=== PATIENT | male | born 1945 | race Caucasian/White ===

== ENCOUNTER 2016-10-07 12:42 | Emergency (ER) | payer MEDICARE, BC ==
--- NOTE | 2016-10-07 16:50 | RAD ---
INDICATION: History of thrombus in the RIGHT great saphenous vein. Pain and redness at medial calf. Anticoagulated. COMPARISON: November 02, 2015 TECHNIQUE: Vásquez scale, color Doppler, and spectral analysis of the deep veins of the RIGHT lower extremity. Vessel compression, phasicity, and augmentation assessed. REPORT: Nonocclusive chronic marginal echogenic thrombus is visualized in the great saphenous vein extending to within 0.8 cm of the saphenous femoral junction. The RIGHT common femoral, profunda femoral, femoral, popliteal, peroneal, and posterior tibial veins are patent. There are thrombosed thick-walled superficial veins at the proximal RIGHT calf. Surrounding soft tissue edema. Patency of the LEFT common femoral vein documented. IMPRESSION: 1. No evidence for RIGHT lower extremity deep venous thrombosis. 2. Nonocclusive chronic marginal echogenic thrombus is visualized in the great saphenous vein extending to within 0.8 cm of the saphenous femoral junction. 3. Superficial thrombophlebitis at the proximal RIGHT calf corresponding with the region of clinical concern.
--- NOTE | 2016-10-07 17:08 | ED ---
Lower Extremity - HPI Summary HPI Summary: Patient presents with medial right lower extremity redness and pain. He has a history of DVT and is on eloquis for A-fib, so he knows he is protected but didn 't know what to do. He denies trauma to the region. He denies SOB, CP, calf swelling or GARCIA. - History of Current Complaint Chief Complaint: EDExtremityLower Stated Complaint: POSSIBLE BLOOD CLOT IN RIGHT LEG Time Seen by Provider: 10/07/16 14:09 Hx Obtained From: Patient Mechanism Of Injury: Unknown Onset of Pain: Days Onset/Duration: Still Present Severity Initially: Mild Severity Currently: Moderate Pain Intensity: 5 Timing: Constant Location: Is Discrete @ - right proximal medial calf Character Of Pain: Aching Associated Signs And Symptoms: Positive: Redness Aggravating Factor(s): Standing Alleviating Factor(s): Rest Able to Bear Weight: Yes - Allergies/Home Medications Allergies/Adverse Reactions: Allergies Allergy/AdvReac Type Severity Reaction Status Date / Time Chlorhexidine Allergy skin Verified 08/19/15 09:30 breakdown PMH/Surg Hx/FS Hx/Imm Hx Endocrine/Hematology History: Reports: Hx Anticoagulant Therapy - COUMADIN, ASPIRIN, Hx Anemia Denies: Hx Blood Disorders, Hx Blood Transfusions, Hx Bone Marrow Disease, Hx Diabetes, Hx Systemic Lupus Erythematosus, Hx Sickle Cell Disease, Hx Thyroid Disease, Hx Unexplained Bleeding Cardiovascular History: Reports: Hx Auto Implanted Cardiovert Defib, Hx Cardiomegaly, Hx Congestive Heart Failure, Hx Hypercholesterolemia, Hx Hypotension, Hx Hypertension, Hx Pacemaker/ICD - FEBRUARY 2014, Other Cardiovascular Problems/Disorders Respiratory History: Reports: Hx Asthma - EXERCISE INDUCED, Hx Chronic Obstructive Pulmonary Disease (COPD), Hx Pneumonia, Hx Seasonal Allergies Denies: Other Respiratory Problems/Disorders Musculoskeletal History: Reports: Hx Arthritis, Hx Orthopedic Injury - left knee injury, Hx Tendonitis Denies: Hx Back Problems, Hx Bursitis, Hx Fibromyalgia, Hx Gout, Hx Osteoporosis, Hx Scoliosis Sensory History: Reports: Hx Cataracts - removed, Hx Contacts or Glasses Denies: Hx Eye Injury, Hx Eye Prosthesis, Hx Glaucoma, Hx Macular Degeneration, Hx Vision Problem, Hx Deafness, Hx Hearing Aid, Hx Hearing Problem , Other Sensory Impairments Opthamlomology History: Reports: Hx Cataracts - removed, Hx Contacts or Glasses Denies: Hx Eye Injury, Hx Eye Prosthesis, Hx Glaucoma, Hx Macular Degeneration, Hx Vision Problem, Other Sensory Impairments Psychiatric History: Reports: Hx Anxiety, Hx Depression - Cancer History Cancer Type, Location and Year: lymphoma, REMISSION SINCE 1986 Hx Chemotherapy: Yes Hx Radiation Therapy: No - Surgical History Surgery Procedure, Year, and Place: S/P HEART TRANSPLANT LONG STEROID USE Hx Anesthesia Reactions: No - Immunization History Date of Tetanus Vaccine: Unk Date of Influenza Vaccine: Fall 2011 Infectious Disease History: No Infectious Disease History: Reports: Hx Shingles Denies: Hx Clostridium Difficile, Hx Hepatitis, Hx Human Immunodeficiency Virus (HIV), Hx Tuberculosis, Traveled Outside the [place] in Last 30 Days - Family History Known Family History: Positive: Hypertension - Social History Occupation: Retired Lives: With Family Alcohol Use: 2-3 days/week Substance Use Type: Reports: None Smoking Status (MU): Former Smoker Have You Smoked in the Last Year: No Review of Systems Negative: Chest Pain Negative: Shortness Of Breath Negative: Edema Positive: Other - mild erythema and pain Negative: Paresthesia, Numbness All Other Systems Reviewed And Are Negative: Yes Physical Exam Triage Information Reviewed: Yes Vital Signs On Initial Exam: Initial Vitals Temp Pulse Resp BP Pulse Ox 97.9 F 73 20 119/82 100 10/07/16 12:48 10/07/16 12:48 10/07/16 12:48 10/07/16 12:48 10/07/16 12:48 Vital Signs Reviewed: Yes Appearance: Positive: Well-Appearing, No Pain Distress, Well-Nourished Skin: Positive: Warm, Skin Color Reflects Adequate Perfusion, Dry, Tender, Soft , Erythema @ - 1cm area of ertythema along right medial proximal calf corresponding to a vein without edema Head/Face: Positive: Normal Head/Face Inspection Eyes: Positive: EOMI, THOM, Conjunctiva Clear ENT: Positive: Hearing grossly normal Respiratory/Lung Sounds: Positive: Clear to Auscultation, Breath Sounds Present Cardiovascular: Positive: RRR Musculoskeletal: Positive: Strength/ROM Intact, Pain @ - TTP right medial proximal calf corrsponding to erythema. Negative: Edema Left, Edema Right Neurological: Positive: Sensory/Motor Intact, Alert, Oriented to Person Place, Time, NV Bundle Intact Distally, Normal Gait Psychiatric: Positive: Affect/Mood Appropriate AVPU Assessment: Alert - [place] Coma Scale Coma Scale Total: 15 Diagnostics - Vital Signs Vital Signs Temp Pulse Resp BP Pulse Ox 10/07/16 12:50 97.9 F 70 20 119/82 100 10/07/16 12:48 97.9 F 73 20 119/82 100 - Laboratory Lab Statement: Any lab studies that have been ordered have been reviewed, and results considered in the medical decision making process. - Ultrasound No standard instances Ultrasound Interpretation: Positive (See Comments) Ultrasound Interpretation Completed By: Radiologist - superficial venous thrombosis Lower Extremity Course/Dx - Diagnoses Differential Diagnosis/HQI/PQRI: Positive: Arthritis, Cellulitis, Contusion, Dislocation, Fracture (Closed), Infection, Phlebitis, Sprain, Strain Provider Diagnoses: Superficial thrombophlebitis of right leg Discharge - Discharge Plan Condition: Stable Disposition: HOME Patient Education Materials: Superficial Thrombophlebitis (ED) Referrals: Tati Das MD [Primary Care Provider] - Additional Instructions: You do not have a deep vein thrombosis (DVT) Please continue to use your normal medications. Apply warm compresses to the area of concern. Use Tylenol for pain , since ibuprofen can also thin your blood. Please follow-up with your primary care provider in 2-3 days for re-evaluation. Return to the emergency department if symptoms worsen.
[2016-10-07 17:24] VITALS: BP 106/90
== END 2016-10-07 17:23 | disposition home or self-care (01) ==
LOC: ED 12:42
DX: I80.01 Phlebitis and thrombophlebitis of superficial vessels of right lower extremity (principal)
CPT/HCPCS: 99281

== ENCOUNTER → 2016-10-26 07:52 | Emergency (ER) | payer MEDICARE, BC ==
[~2016-10-26 07:52] MED LIST: Acetaminophen TAB* 325 MG PO ONE; NS 0.9% 1000 ML* 2,000 ML IV ONE; Ondansetron INJ* 2 MG/ML VIAL IV ONE; Potassium Chlor TAB* 20 MEQ TAB.ER PO ONE; Vancomycin(*) 1,000 MG in NS 0.9% 250 ML* 250 ML IVPB ONE; oxyCODONE/Acetamin 5/325 MG* TAB PO ONE
--- NOTE | 2016-10-26 08:54 | RAD ---
INDICATION: Fever COMPARISON: Similar chest x-ray dated February 20, 2015 TECHNIQUE: Single AP portable view of the chest was obtained. FINDINGS: Image quality is compromised due to the relative inferiority of a portable chest x-ray. Stable iatrogenic findings include a right chest cardiac pacemaker with one lead overlying the heart and sternotomy wires. The heart and mediastinum exhibit normal size and contour. The lungs are grossly clear. There is no evidence of a large pleural effusion. Visualized bones are normal for the patient's age. IMPRESSION: No radiographic evidence for acute cardiopulmonary abnormality on this portable chest x-ray.
[2016-10-26 09:32] LABS: Hematocrit 36 % (42-52); Hemoglobin 11.6 g/dl (14.0-18.0); Mean Corpuscular HGB Conc 33 g/dl (31-36); Mean Corpuscular Hemoglobin 27 pg (27-31); Mean Corpuscular Volume 83 fL (80-94); Mean Platelet Volume 8 um3 (7.4-10.4); Red Blood Count 4.29 10^6/ul (4.0-5.4); Red Cell Distribution Width 17 % (10.5-15); White Blood Count 5.6 10^3/ul (3.5-10.8)
[2016-10-26 09:38] LABS: Add Diff/Slide Review? Manual Diff Added; Comments Flag Yes
[2016-10-26 09:41] LABS: Albumin 3.7 g/dL (3.2-5.2); BUN/Creatinine Ratio 20.2 (8-20); C Reactive Protein 159.97 mg/L (< 5.00); Calcium 8.5 mg/dL (8.6-10.3); EGFR African American 86.3 (>60); EGFR Non-African American 67.1 (>60); Globulin 2.8 g/dL (2-4); Potassium 3.4 mmol/L (3.5-5.0); Total Bilirubin 0.8 mg/dL (0.2-1.0); Total Protein 6.5 g/dL (6.4-8.9)
[2016-10-26 09:43] LABS: Troponin I 0.03 ng/mL (<0.04)
[2016-10-26 10:32] LABS: Add Path Review? YES; Eosinophils % 1 % (0-6); Hypochromasia 1+; Microcytosis 1+; Neutrophil % 78 % (38-83)
[2016-10-26 11:00] LABS: Urine Bacteria Absent (Absent); Urine Bilirubin Negative (Negative); Urine Glucose Negative (Negative); Urine Nitrite Negative (Negative)
[2016-10-26 11:35] LABS: Erythrocyte Sed Rate 32 mm/Hr (0-40)
[2016-10-26 12:05] VITALS: BP 110/68
--- NOTE | 2016-10-26 12:13 | ED ---
Hunter Esquivel Aidan, scribed for Car Wisdom MD on 10/26/16 at 0905 . Complex/Multi-Sys Presentation - HPI Summary HPI Summary: 71 y/o male presents to the ED with a complaint of acute, constant, moderate, diffuse abdominal pain and diffuse joint pain. Other associated symptoms include a GARCIA, fever of 103 last night, chills, mild cough, severe diarrhea this morning, and a spreading rash on his back that was first noticed yesterday. Besides his fever and rash, symptoms began 4 days ago. Yesterday, he was diagnosed with UTI and given abx. Pt denies any SOB or CP. He believes he may have a kidney infection. Hx of heart transplant in August of 2013. - History Of Current Complaint Chief Complaint: EDGeneral Time Seen by Provider: 10/26/16 08:12 Hx Obtained From: Patient, Family/Tensile Tester - Onset/Duration: Gradual Onset, Lasting Days - 4, Still Present Timing: Constant Severity Currently: Moderate Severity Initially: Moderate Location: Pain At: - diffuse abdomen, diffuse joint pain, GARCIA Character: Sharp - abd pain, GARCIA was undescribed Aggravating Factor(s): unknown Alleviating Factor(s): unknown Associated Signs And Symptoms: Positive: Headache, Cough, Diarrhea, Abdominal Pain, Fever - 103 last night, Other - diffuse joint pain, chills, rash - Allergies/Home Medications Allergies/Adverse Reactions: Allergies Allergy/AdvReac Type Severity Reaction Status Date / Time Chlorhexidine Allergy skin Verified 08/19/15 09:30 breakdown PMH/Surg Hx/FS Hx/Imm Hx Endocrine/Hematology History: Reports: Hx Anticoagulant Therapy - COUMADIN, ASPIRIN, Hx Anemia Denies: Hx Blood Disorders, Hx Blood Transfusions, Hx Bone Marrow Disease, Hx Diabetes, Hx Systemic Lupus Erythematosus, Hx Sickle Cell Disease, Hx Thyroid Disease, Hx Unexplained Bleeding Cardiovascular History: Reports: Hx Auto Implanted Cardiovert Defib, Hx Cardiomegaly, Hx Congestive Heart Failure, Hx Hypercholesterolemia, Hx Hypotension, Hx Hypertension, Hx Pacemaker/ICD - FEBRUARY 2014, Other Cardiovascular Problems/Disorders Respiratory History: Reports: Hx Asthma - EXERCISE INDUCED, Hx Chronic Obstructive Pulmonary Disease (COPD), Hx Pneumonia, Hx Seasonal Allergies Denies: Other Respiratory Problems/Disorders Musculoskeletal History: Reports: Hx Arthritis, Hx Orthopedic Injury - left knee injury, Hx Tendonitis Denies: Hx Back Problems, Hx Bursitis, Hx Fibromyalgia, Hx Gout, Hx Osteoporosis, Hx Scoliosis Sensory History: Reports: Hx Cataracts - removed, Hx Contacts or Glasses Denies: Hx Eye Injury, Hx Eye Prosthesis, Hx Glaucoma, Hx Macular Degeneration, Hx Vision Problem, Hx Deafness, Hx Hearing Aid, Hx Hearing Problem , Other Sensory Impairments Opthamlomology History: Reports: Hx Cataracts - removed, Hx Contacts or Glasses Denies: Hx Eye Injury, Hx Eye Prosthesis, Hx Glaucoma, Hx Macular Degeneration, Hx Vision Problem, Other Sensory Impairments Psychiatric History: Reports: Hx Anxiety, Hx Depression - Cancer History Cancer Type, Location and Year: lymphoma, REMISSION SINCE 1986 Hx Chemotherapy: Yes Hx Radiation Therapy: No - Surgical History Surgery Procedure, Year, and Place: S/P HEART TRANSPLANT LONG STEROID USE Hx Anesthesia Reactions: No - Immunization History Date of Tetanus Vaccine: Unk Date of Influenza Vaccine: Fall 2011 Infectious Disease History: No Infectious Disease History: Reports: Hx Shingles Denies: Hx Clostridium Difficile, Hx Hepatitis, Hx Human Immunodeficiency Virus (HIV), Hx Tuberculosis, Traveled Outside the in Last 30 Days - Family History Known Family History: Positive: Hypertension - Social History Occupation: Retired Lives: With Family Alcohol Use: None Substance Use Type: Reports: None Smoking Status (MU): Former Smoker Have You Smoked in the Last Year: No Review of Systems Positive: Fever, Chills. Negative: Fatigue, Skin Diaphoresis Eyes: Negative ENT: Negative Cardiovascular: Negative Positive: Cough. Negative: Shortness Of Breath Positive: Abdominal Pain, Diarrhea. Negative: Vomiting, Nausea Genitourinary: Negative Positive: Arthralgia - diffuse joint pain. Negative: Myalgia Positive: Rash. Negative: Bruising Positive: Headache. Negative: Weakness, Paresthesia, Numbness, Syncope, Slurred Speech Psychological: Normal All Other Systems Reviewed And Are Negative: Yes Physical Exam - Summary Physical Exam Summary: VITAL SIGNS: Reviewed. GENERAL: Patient is a well-developed and nourished MALE who is lying comfortable in the stretcher. Patient is not in any acute respiratory distress. HEAD AND FACE: No signs of trauma. No ecchymosis, hematomas or skull depressions. No sinus tenderness. EYES: PERRLA, EOMI x 2, No injected conjunctiva, no nystagmus. EARS: Hearing grossly intact. Ear canals and tympanic membranes are within normal limits. MOUTH: Oropharynx within normal limits. NECK: Supple, trachea is midline, no adenopathy, no JVD, no carotid bruit, no c- spine tenderness, neck with full ROM. CHEST: Symmetric, no tenderness at palpation LUNGS: Clear to auscultation bilaterally. No wheezing or crackles. CVS: Regular rate and rhythm, S1 and S2 present, no murmurs or gallops appreciated. ABDOMEN: Soft, non-tender. No signs of distention. No rebound no guarding, and no masses palpated. Bowel sounds are normal. EXTREMITIES: FROM in all major joints, no edema, no cyanosis or clubbing. NEURO: Alert and oriented x 3. No acute neurological deficits. Speech is normal and follows commands. SKIN: Dry and warm, however, there is a rash on the patient's back, 6cm b 4cm with irregular borders. Triage Information Reviewed: Yes Vital Signs On Initial Exam: Initial Vitals Temp Pulse Resp BP Pulse Ox 99.6 F 69 18 122/80 100 10/26/16 07:54 10/26/16 07:54 10/26/16 07:54 10/26/16 07:54 10/26/16 07:54 Vital Signs Reviewed: Yes - [place] Coma Scale Coma Scale Total: 15 Diagnostics - Vital Signs Vital Signs Temp Pulse Resp BP Pulse Ox 10/26/16 07:59 99.5 F 70 17 122/80 100 10/26/16 07:54 99.6 F 69 18 122/80 100 - Laboratory Lab Results: Lab Results 10/26/16 10/26/16 10/26/16 Range/Units 09:05 09:05 09:05 WBC 5.6 (3.5-10.8) 10^3/ul RBC 4.29 (4.0-5.4) 10^6/ul Hgb 11.6 L (14.0-18.0) g/dl Hct 36 L (42-52) % MCV 83 (80-94) fL MCH 27 (27-31) pg MCHC 33 (31-36) g/dl RDW 17 H (10.5-15) % Plt Count 149 L (150-450) 10^3/ul MPV 8 (7.4-10.4) um3 Absolute Neuts (auto) 4.3 (1.5-7.7) 10^3/ul Absolute Lymphs (auto) 0.6 L (1.0-4.8) 10^3/ul Absolute Monos (auto) 0.7 (0-0.8) 10^3/ul Absolute Eos (auto) 0 (0-0.6) 10^3/ul Absolute Basos (auto) 0 (0-0.2) 10^3/ul Absolute Nucleated RBC 0 10^3/ul Neutrophils % 78 (38-83) % Lymphocytes % 10 L (25-47) % Monocytes % 11 (0-13) % Eosinophils % 1 (0-6) % Normal RBC Morphology Not Reportable Hypochromasia 1+ Microcytosis 1+ ESR Pending Hem Pathologist Commnt Pending INR (Anticoag Therapy) 1.57 H (0.89-1.11) APTT 41.8 H (26.0-36.3) seconds Fibrinogen 477 H (110.8-404.3) mg/dL Sodium 131 L (133-145) mmol/L Potassium 3.4 L (3.5-5.0) mmol/L Chloride 96 L (101-111) mmol/L Carbon Dioxide 25 (22-32) mmol/L Anion Gap 10 (2-11) mmol/L BUN 22 (6-24) mg/dL Creatinine 1.09 (0.67-1.17) mg/dL Est GFR ( Amer) 86.3 (>60) Est GFR (Non-Af Amer) 67.1 (>60) BUN/Creatinine Ratio 20.2 H (8-20) Glucose 121 H (70-100) mg/dL Lactic Acid (0.5-2.0) mmol/L Calcium 8.5 L (8.6-10.3) mg/dL Total Bilirubin 0.80 (0.2-1.0) mg/dL AST 52 H (13-39) U/L ALT 30 (7-52) U/L Alkaline Phosphatase 100 (34-104) U/L Total Creatine Kinase 123 (10-223) U/L Troponin I 0.03 (<0.04) ng/mL C-Reactive Protein 159.97 H (< 5.00) mg/L B-Natriuretic Peptide ( - 100) pg/mL Total Protein 6.5 (6.4-8.9) g/dL Albumin 3.7 (3.2-5.2) g/dL Globulin 2.8 (2-4) g/dL Albumin/Globulin Ratio 1.3 (1-3) Urine Color Urine Appearance Urine pH (5-9) Ur Specific [place] (1.010-1.030) Urine Protein (Negative) Urine Ketones (Negative) Urine Blood (Negative) Urine Nitrate (Negative) Urine Bilirubin (Negative) Urine Urobilinogen (Negative) Ur Leukocyte Esterase (Negative) Urine WBC (Auto) (Absent) Urine RBC (Auto) (Absent) Ur Squamous Epith Cells (Absent) Urine Bacteria (Absent) Urine Glucose (Negative) Urine Ascorbic Acid (Negative) Influenza A (Rapid) (Negative) Influenza B (Rapid) (Negative) 10/26/16 10/26/16 10/26/16 Range/Units 09:05 09:05 09:30 WBC (3.5-10.8) 10^3/ul RBC (4.0-5.4) 10^6/ul Hgb (14.0-18.0) g/dl Hct (42-52) % MCV (80-94) fL MCH (27-31) pg MCHC (31-36) g/dl RDW (10.5-15) % Plt Count (150-450) 10^3/ul MPV (7.4-10.4) um3 Absolute Neuts (auto) (1.5-7.7) 10^3/ul Absolute Lymphs (auto) (1.0-4.8) 10^3/ul Absolute Monos (auto) (0-0.8) 10^3/ul Absolute Eos (auto) (0-0.6) 10^3/ul Absolute Basos (auto) (0-0.2) 10^3/ul Absolute Nucleated RBC 10^3/ul Neutrophils % (38-83) % Lymphocytes % (25-47) % Monocytes % (0-13) % Eosinophils % (0-6) % Normal RBC Morphology Hypochromasia Microcytosis ESR Hem Pathologist Commnt INR (Anticoag Therapy) (0.89-1.11) APTT (26.0-36.3) seconds Fibrinogen (110.8-404.3) mg/dL Sodium (133-145) mmol/L Potassium (3.5-5.0) mmol/L Chloride (101-111) mmol/L Carbon Dioxide (22-32) mmol/L Anion Gap (2-11) mmol/L BUN (6-24) mg/dL Creatinine (0.67-1.17) mg/dL Est GFR ( Amer) (>60) Est GFR (Non-Af Amer) (>60) BUN/Creatinine Ratio (8-20) Glucose (70-100) mg/dL Lactic Acid 1.0 (0.5-2.0) mmol/L Calcium (8.6-10.3) mg/dL Total Bilirubin (0.2-1.0) mg/dL AST (13-39) U/L ALT (7-52) U/L Alkaline Phosphatase (34-104) U/L Total Creatine Kinase (10-223) U/L Troponin I (<0.04) ng/mL C-Reactive Protein (< 5.00) mg/L B-Natriuretic Peptide 139 H ( - 100) pg/mL Total Protein (6.4-8.9) g/dL Albumin (3.2-5.2) g/dL Globulin (2-4) g/dL Albumin/Globulin Ratio (1-3) Urine Color Yellow Urine Appearance Clear Urine pH 5.0 (5-9) Ur Specific [place] 1.020 (1.010-1.030) Urine Protein 1+(30 mg/dl) H (Negative) Urine Ketones 1+ H (Negative) Urine Blood 2+ H (Negative) Urine Nitrate Negative (Negative) Urine Bilirubin Negative (Negative) Urine Urobilinogen Negative (Negative) Ur Leukocyte Esterase Trace H (Negative) Urine WBC (Auto) Trace(0-5/hpf) (Absent) Urine RBC (Auto) 3+(>10/hpf) H (Absent) Ur Squamous Epith Cells Present H (Absent) Urine Bacteria Absent (Absent) Urine Glucose Negative (Negative) Urine Ascorbic Acid * H (Negative) Influenza A (Rapid) (Negative) Influenza B (Rapid) (Negative) 10/26/16 Range/Units 09:30 WBC (3.5-10.8) 10^3/ul RBC (4.0-5.4) 10^6/ul Hgb (14.0-18.0) g/dl Hct (42-52) % MCV (80-94) fL MCH (27-31) pg MCHC (31-36) g/dl RDW (10.5-15) % Plt Count (150-450) 10^3/ul MPV (7.4-10.4) um3 Absolute Neuts (auto) (1.5-7.7) 10^3/ul Absolute Lymphs (auto) (1.0-4.8) 10^3/ul Absolute Monos (auto) (0-0.8) 10^3/ul Absolute Eos (auto) (0-0.6) 10^3/ul Absolute Basos (auto) (0-0.2) 10^3/ul Absolute Nucleated RBC 10^3/ul Neutrophils % (38-83) % Lymphocytes % (25-47) % Monocytes % (0-13) % Eosinophils % (0-6) % Normal RBC Morphology Hypochromasia Microcytosis ESR Hem Pathologist Commnt INR (Anticoag Therapy) (0.89-1.11) APTT (26.0-36.3) seconds Fibrinogen (110.8-404.3) mg/dL Sodium (133-145) mmol/L Potassium (3.5-5.0) mmol/L Chloride (101-111) mmol/L Carbon Dioxide (22-32) mmol/L Anion Gap (2-11) mmol/L BUN (6-24) mg/dL Creatinine (0.67-1.17) mg/dL Est GFR ( Amer) (>60) Est GFR (Non-Af Amer) (>60) BUN/Creatinine Ratio (8-20) Glucose (70-100) mg/dL Lactic Acid (0.5-2.0) mmol/L Calcium (8.6-10.3) mg/dL Total Bilirubin (0.2-1.0) mg/dL AST (13-39) U/L ALT (7-52) U/L Alkaline Phosphatase (34-104) U/L Total Creatine Kinase (10-223) U/L Troponin I (<0.04) ng/mL C-Reactive Protein (< 5.00) mg/L B-Natriuretic Peptide ( - 100) pg/mL Total Protein (6.4-8.9) g/dL Albumin (3.2-5.2) g/dL Globulin (2-4) g/dL Albumin/Globulin Ratio (1-3) Urine Color Urine Appearance Urine pH (5-9) Ur Specific [place] (1.010-1.030) Urine Protein (Negative) Urine Ketones (Negative) Urine Blood (Negative) Urine Nitrate (Negative) Urine Bilirubin (Negative) Urine Urobilinogen (Negative) Ur Leukocyte Esterase (Negative) Urine WBC (Auto) (Absent) Urine RBC (Auto) (Absent) Ur Squamous Epith Cells (Absent) Urine Bacteria (Absent) Urine Glucose (Negative) Urine Ascorbic Acid (Negative) Influenza A (Rapid) Negative (Negative) Influenza B (Rapid) Negative (Negative) Result Diagrams: 10/26/16 09:05 10/26/16 09:05 Lab Statement: Any lab studies that have been ordered have been reviewed, and results considered in the medical decision making process. Re-Evaluation - Re-Evaluation First Eval Re-Evaluation Time: 09:40 - On re-evaluation, the patient was not feeling better nor was he feeling worse. Change: Unchanged Complex Multi-Symp Course/Dx Assessment/Plan: 71 y/o male presents to the ED with a complaint of acute, constant, moderate, diffuse abdominal pain and diffuse joint pain. Other associated symptoms include a GARCIA, fever of 103 last night, chills, mild cough, severe diarrhea this morning, and a spreading rash on his back that was first noticed yesterday. Besides his fever and rash, symptoms began 4 days ago. Yesterday, he was diagnosed with UTI and given abx. Pt denies any SOB or CP. He believes he may have a kidney infection. Hx of heart transplant in August of 2013. In the ED course an 2 IV access was obtained. Patient was placed in a property assessment monitor. Patient was started with IV fluids. Since patient is immunosuppressed and he has a fever blood work and blood cultures, UA and Urine cultures obtained. He was started in Zosyn and Vancomycin. Labs within normal limits except for slight chronic anemia, PTT 41.8, Fibrinogen 477, NA 131, K 3.4, glucose 121. CRP 159.9. Troponin : 0.03. EKG shows a NSR at w/o ST elevations. CXR impression: No acute disease. In the ED course he is feeling slightly better. He was given Tylenol for a fever and Percocet for pain. I discussed the case with Elizabeth PAULSON for Dr. Tang. They agree with current management and they request for the patient to transfer to [facility]. He continues to get fluids, and he is stable at this time. Accepting physician is Dr. Kitty Hoffman. - Diagnoses Differential Diagnoses/HQI/PQRI: Other - UTI, pyelonephritis, [place], Sepsis Provider Diagnoses: Sepsis, Hypokalemia Discharge - Discharge Plan Condition: Stable Disposition: TRANS HIGHER LVL OF CARE FAC Referrals: Tati Das MD [Primary Care Provider] - The documentation as recorded by the Hunter horton Aidan accurately reflects the service I personally performed and the decisions made by , Car Wisdom MD.
--- NOTE | 2016-10-27 13:31 | ED ---
IHunter Aidan, scribed for Car Wisdom MD on 10/26/16 at 1623 . Progress - Progress Note Progress Note: CHEST X-RAY IMPRESSION: No radiographic evidence for acute cardiopulmonary abnormality on this portable chest x-ray. Troponin was 0.03. EKG 1113: NORMAL SINUS RHYTHM AT 70 BPM WITH T WAVE INVERSIONS AT V2, V3, AND V4. NO ST DEPRESSIONS. Re-Evaluation - Re-Evaluation First Eval Re-Evaluation Time: 09:40 - On re-evaluation, the patient was not feeling better nor was he feeling worse. Change: Unchanged Course/Dx - Diagnoses Provider Diagnoses: Sepsis, Hypokalemia The documentation as recorded by the Hunter horton Aidan accurately reflects the service I personally performed and the decisions made by , Car Wisdom MD.
== END | disposition short-term general hospital (02) ==
LOC: ED 07:52
DX: A41.9 Sepsis, unspecified organism (principal); E87.6 Hypokalemia; R50.9 Fever, unspecified; R10.9 Unspecified abdominal pain; R51 Headache; R05 Cough; R19.7 Diarrhea, unspecified
CPT/HCPCS: 36415; 71010; 80053; 81003; 81015; 82550; 83605; 83880; 84484; 85025; 85060; 85384; 85610; 85652; 85730; 86140; 87040; 87502; 93005; 99284; A9270-GY; J2405; J2543; J3370

== ENCOUNTER 2018-11-10 11:23 | Emergency (ER) | payer MEDICARE, OTHER ==
--- OUTSIDE RECORDS SUMMARY | 2018-11-10 11:37 | XMS REPORT | Continuity of Care Document ---
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 Use Rarely consumes alcohol Tobacco Use Start: Unknown End: Patient is a former smoker Unknown Smoking Status Reviewed: 10/31/18 Patient is a former smoker Exercise Type/Frequency Exercises regularly Allergies, Adverse Reactions, Alerts Active Allergies Reaction Severity Comments Date Chlorhexidine 09/24/2018 Quinine 09/24/2018 Medications Active Medications SIG Qnty Indications Ordering Date Provider Spironolactone 1 po qd 30tabs Josh Hercules 09/26/2012 25mg Montrell Ramos Tablets Simvastatin 1 tab by mouth every 90tabs Josh Hercules 04/24/2012 40mg day Montrell Ramos Tablets Tikosyn 1 po bid 180caps Josh Hercules 04/16/2012 500mcg Capsules Montrell Ramos Lisinopril 1 po qd 90tabs Josh Hercules 03/28/2012 10mg Tablets Montrell Ramos Lorazepam take 1 tablet by Unknown 0.5mg Tablets mouth 2 times daily as needed for anxiety/insomnia Vitamin C Plus Wild Unknown Robyn Hips 500mg Chewtabs Calcium 500 + D3 Unknown Cyanocobalamin 1 milliliters Unknown intramuscular 1000mcg/ML Solution [id number] Multivitamin Adult 1 by mouth every day Unknown Tablets Sirolimus Unknown 0.5mg Tablets Flomax 1 by mouth every day Unknown 0.4mg Capsules Zoloft 1 by mouth every day Unknown 125mg Tablets Protonix 1 by mouth every day Unknown 40mg Tablets DR Toprol XL 1 by mouth every day Unknown 25mg Tablets ER 24HR Aspirin 81 Low Dose 1 by mouth every day Unknown 81mg Chewtabs Pravastatin Sodium take one tablet by Unknown 40mg mouth at bedtime Tablets Amlodipine Besylate 1 by mouth every day Unknown 2.5mg Tablets Tacrolimus 1 cap every morning. Unknown 0.5mg Capsules Medications Administered in Office Medication SIG Qnty Indications Ordering Provider Date Depomedrol 40MG Balbina Dalton M.D. 09/24/2018 Injection Vital Signs Date Vital Result Comment 10/31/2018 8:47am Height 68 inches 5'8" Weight 180.00 lb Heart Rate 72 /min BP Systolic 120 mmHg BP Diastolic 82 mmHg BMI (Body Mass Index) 27.4 kg/m2 09/24/2018 1:57pm Height 69 inches 5'9" Weight 180.00 lb Heart Rate 73 /min Respiratory Rate 16 /min O2 % BldC Oximetry 99 % BMI (Body Mass Index) 26.6 kg/m2 04/11/2018 8:07am Height 69 inches 5'9" Weight 148.00 lb Heart Rate 73 /min BP Systolic 118 mmHg BP Diastolic 78 mmHg Respiratory Rate 18 /min Body Temperature 97.3 F Pain Level 3 BMI (Body Mass Index) 21.9 kg/m2 03/15/2018 10:28am Height 69 inches 5'9" Weight 186.38 lb Heart Rate 70 /min BP Systolic 122 mmHg BP Diastolic 89 mmHg Respiratory Rate 18 /min Body Temperature 96.6 F O2 % BldC Oximetry 99 % BMI (Body Mass Index) 27.5 kg/m2 02/28/2018 9:14am Height 69 inches 5'9" Weight 148.00 lb Heart Rate 72 /min BP Systolic 156 mmHg BP Diastolic 90 mmHg Respiratory Rate 14 /min Body Temperature 97.6 F Pain Level 1 BMI (Body Mass Index) 21.9 kg/m2 03/05/2015 2:49pm Height 69 inches 5'9" Weight 160.00 lb BMI (Body Mass Index) 23.6 kg/m2 Results Test Date Facility Test Result H/L Range Note CBC Auto Diff 08/01/2018 [facility] White Blood 4.6 10^3/uL N 3.5-10.[address] [place] [address] [phone] Red Blood Count 4.15 10^6/uL Low 4.18-5.48 Hemoglobin 12.9 g/dL Low 14.0-18.0 Hematocrit 38 % N 36-46 Mean Corpuscular Volume 92 fL N 80-94 Mean Corpuscular Hemoglobin 31 pg N 27-31 Mean Corpuscular HGB Conc 34 g/dL N 31-36 Red Cell Distribution Width 16 % High 10.5-15 Platelet Count 252 10^3/uL N 150-450 Mean Platelet Volume 7.3 fL Low 7.4-10.4 Abs Neutrophils 2.3 10^3/uL N 1.5-7.7 Abs Lymphocytes 1.4 10^3/uL N 1.0-4.8 Abs Monocytes 0.7 10^3/uL N 0-0.8 Abs Eosinophils 0.1 10^3/uL N 0-0.6 Abs Basophils 0 10^3/uL N 0-0.2 Abs Nucleated RBC 0 10^3/uL Granulocyte % 50.8 % Lymphocyte % 31.4 % Monocyte % 14.4 % Eosinophil % 3.1 % Basophil % 0.3 % Nucleated Red Blood Cells % 0.1 Comp Metabolic Panel 08/01/2018 [facility] Sodium 138 mmol/L N 135-[address] [place] [address] [phone] Potassium 4.5 mmol/L N 3.5-5.0 Chloride 103 mmol/L N 101-111 Co2 Carbon Dioxide 30 mmol/L N 22-32 Anion Gap 5 mmol/L N 2-11 Glucose 106 mg/dL High 70-100 Blood Urea Nitrogen 25 mg/dL High 6-24 Creatinine 0.96 mg/dL N 0.67-1.17 BUN/Creatinine Ratio 26.0 High 8-20 Calcium 9.1 mg/dL N 8.6-10.3 Total Protein 5.9 g/dL Low 6.4-8.9 Albumin 3.9 g/dL N 3.2-5.2 Globulin 2.0 g/dL N 2-4 Albumin/Globulin Ratio 2.0 N 1-3 Total Bilirubin 0.50 mg/dL N 0.2-1.0 Alkaline Phosphatase 64 U/L N 34-104 Alt 16 U/L N 7-52 Ast 23 U/L N 13-39 Egfr Non- 77.4 >60 Egfr 93.7 >60 1 Laboratory 08/01/2018 [facility] Triglyceride 68 mg/dL [address] [place] [address] [phone] Ebv Dna 08/01/2018 [facility] Eloy-Jones Undetected Undetected [address] Virus Dna IU/[place] [address] (PCR) [phone] Laboratory 08/01/2018 [facility] CMV By PCR Undetected Undetected [address] IU/[place] [address] [phone] Sirolimus/R 08/01/2018 [facility] Sirolimus 3.9 ng/mL Abnormal [address] [place], [place] [id number] [phone] Laboratory 08/01/2018 [facility] Tacrolimus 3.3 [address] [place] [address] [phone] Laboratory 07/03/2018 [facility] CMV PCR Blood Undetected Undetected [address] IU/[place] [address] [phone] Ebv Dna 07/03/2018 [facility] Eloy-Jones <100 IU/mL Abnormal Undetected [address] [place] [address] (PCR) [phone] Laboratory 07/03/2018 [facility] Tacrolimus 3.5 [address] [place] [address] [phone] Sirolimus/R 07/03/2018 [facility] Sirolimus 3.4 ng/mL Abnormal [address] [place] [address] [phone] Laboratory 07/03/2018 [facility] Triglycerides 77 mg/dL [address] [place] [address] [phone] Comp 07/03/2018 [facility] Sodium 138 mmol/L N 135-[address] [place] [address] [phone] Potassium 4.3 mmol/L N 3.5-5.0 Chloride 103 mmol/L N 101-111 Co2 Carbon Dioxide 29 mmol/L N 22-32 Anion Gap 6 mmol/L N 2-11 Glucose 119 mg/dL High 70-100 Blood Urea Nitrogen 25 mg/dL High 6-24 Creatinine 0.87 mg/dL N 0.67-1.17 BUN/Creatinine Ratio 28.7 High 8-20 Calcium 9.3 mg/dL N 8.6-10.3 Total Protein 6.3 g/dL Low 6.4-8.9 Albumin 3.9 g/dL N 3.2-5.2 Globulin 2.4 g/dL N 2-4 Albumin/Globulin Ratio 1.6 N 1-3 Total Bilirubin 0.50 mg/dL N 0.2-1.0 Alkaline Phosphatase 59 U/L N 34-104 Alt 14 U/L N 7-52 Ast 21 U/L N 13-39 Egfr Non- 86.8 >60 Egfr 105.0 >60 12 CBC Auto Diff 07/03/2018 [facility] White Blood 4.4 10^3/uL N 3.5-10.8 [address] [facility] [address] [phone] Red Blood Count 4.42 10^6/uL N 4.00-5.40 Hemoglobin 13.5 g/dL Low 14.0-18.0 Hematocrit 41 % Low 42-52 Mean Corpuscular Volume 92 fL N 80-94 Mean Corpuscular Hemoglobin 31 pg N 27-31 Mean Corpuscular HGB Conc 33 g/dL N 31-36 Red Cell Distribution Width 15 % N 10.5-15 Platelet Count 269 10^3/uL N 150-450 Mean Platelet Volume 7.2 fL Low 7.4-10.4 Abs Neutrophils 2.7 10^3/uL N 1.5-7.7 Abs Lymphocytes 1.1 10^3/uL N 1.0-4.8 Abs Monocytes 0.5 10^3/uL N 0-0.8 Abs Eosinophils 0.1 10^3/uL N 0-0.6 Abs Basophils 0 10^3/uL N 0-0.2 Abs Nucleated RBC 0 10^3/uL Granulocyte % 60.4 % Lymphocyte % 25.1 % Monocyte % 11.7 % Eosinophil % 2.5 % Basophil % 0.3 % Nucleated Red Blood Cells % 0 Laboratory test 02/12/2018 [facility] Tacrolimus 5.0 13 finding [address] [place] [address] [phone] Sirolimus/Rapamu 02/12/2018 [facility] Sirolimus 7.7 ng/mL 14 [address] [place] [address] [phone] Laboratory test 02/12/2018 [facility] Triglycerides 98 mg/dL 15 finding [address] [place] [address] [phone] Comp Metabolic 02/12/2018 [facility] Sodium 139 N 135-1 Panel 101 [facility] mmol/L 45 [place] [address] [phone] Potassium 4.1 mmol/L N 3.5-5.0 Chloride 106 mmol/L N 101-111 Co2 Carbon Dioxide 26 mmol/L N 22-32 Anion Gap 7 mmol/L N 2-11 Glucose 111 mg/dL High 70-100 Blood Urea Nitrogen 20 mg/dL N 6-24 Creatinine 0.81 mg/dL N 0.67-1.17 BUN/Creatinine Ratio 24.7 High 8-20 Calcium 8.7 mg/dL N 8.6-10.3 Total Protein 6.1 g/dL Low 6.4-8.9 Albumin 3.9 g/dL N 3.2-5.2 Globulin 2.2 g/dL N 2-4 Albumin/Globulin Ratio 1.8 N 1-3 Total Bilirubin 0.60 mg/dL N 0.2-1.0 Alkaline Phosphatase 65 U/L N 34-104 Alt 19 U/L N 7-52 Ast 29 U/L N 13-39 Egfr Non- 94.2 >60 Egfr 114.0 >60 16 CBC Auto Diff 02/12/2018 [facility] White Blood 4.5 10^3/uL N 3.5-10.[address] [place] [address] [phone] Red Blood Count 4.26 10^6/uL N 4.00-5.40 Hemoglobin 12.5 g/dL Low 14.0-18.0 Hematocrit 38 % Low 42-52 Mean Corpuscular Volume 89 fL N 80-94 Mean Corpuscular Hemoglobin 29 pg N 27-31 Mean Corpuscular HGB Conc 33 g/dL N 31-36 Red Cell Distribution Width 17 % High 10.5-15 Platelet Count 226 10^3/uL N 150-450 Mean Platelet Volume 7.2 um3 Low 7.4-10.4 Abs Neutrophils 2.6 10^3/uL N 1.5-7.7 Abs Lymphocytes 1.3 10^3/uL N 1.0-4.8 Abs Monocytes 0.5 10^3/uL N 0-0.8 Abs Eosinophils 0.1 10^3/uL N 0-0.6 Abs Basophils 0 10^3/uL N 0-0.2 Abs Nucleated RBC 0 10^3/uL Granulocyte % 57.9 % N 38-83 Lymphocyte % 29.7 % N 25-47 Monocyte % 10.1 % High 0-7 Eosinophil % 1.9 % N 0-6 Basophil % 0.4 % N 0-2 Nucleated Red Blood Cells % 0 CBC No Diff 03/31/2014 [facility] White Blood 3.8 10^3/uL Low 4.8-10.[address] [place] [address] [phone] Red Blood Count 3.12 10^6/uL Low 4.0-5.4 Hemoglobin 9.8 g/dL Low 14.0-18.0 Hematocrit 31 % Low 42-52 Mean Corpuscular Volume 100 fL High 80-94 Mean Corpuscular Hemoglobin 32 pg High 27-31 Mean Corpuscular HGB Conc 32 g/dL N 31-36 Red Cell Distribution Width 15 % N 10.5-15 Platelet Count 197 10^3/uL N 150-450 Mean Platelet Volume 8 um3 N 7.4-10.4 Comp Metabolic Panel 03/31/2014 [facility] Sodium 138 mmol/L N 133-145 [address] [place] [address] [phone] Potassium 4.2 mmol/L N 3.5-5.0 17 Chloride 105 mmol/L N 101-111 Co2 Carbon Dioxide 29 mmol/L N 22-32 Anion Gap 4 mmol/L N 2-11 Glucose 158 mg/dL High 70-100 Blood Urea Nitrogen 27 mg/dL High 6-24 Creatinine 1.03 mg/dL N 0.67-1.17 BUN/Creatinine Ratio 26.2 High 8-20 Calcium 9.0 mg/dL N 8.6-10.3 Total Protein 5.5 g/dL Low 6.4-8.9 Albumin 3.9 g/dL N 3.2-5.2 Globulin 1.6 g/dL Low 2-4 Albumin/Globulin Ratio 2.4 N 1-3 Total Bilirubin 0.60 mg/dL N 0.2-1.0 Alkaline Phosphatase 76 U/L N 34-104 Alt 22 U/L N 7-52 Ast 32 U/L N 13-39 Egfr Non- 72.3 N >60 Egfr 92.9 N >60 18 Laboratory test 03/31/2014 [facility] Magnesium 1.2 mg/dL Low 1.9-2.7 finding [address] [place] [address] [phone] Comp Metabolic 10/11/2012 [facility] Sodium 135 mmol/L 133- 145 Panel [address] [place] [address] [phone] Potassium 3.6 mmol/L 3.5-5.0 Chloride 99 mmol/L Low 101-111 Co2 Carbon Dioxide 30.0 mmol/L 22-32 Anion Gap 6.0 mmol/L 2-11 Glucose 162 mg/dL High 70-100 Blood Urea Nitrogen 31 mg/dL High 6-24 Creatinine 1.10 mg/dL 0.50-1.40 BUN/Creatinine Ratio 28.2 High 8-20 Calcium 8.7 mg/dL 8.1-9.9 Total Protein 5.4 g/dL Low 6.2-8.1 Albumin 2.8 g/dL Low 3.2-5.2 Globulin 2.6 g/dL 2-4 Albumin/Globulin Ratio 1.1 1-3 Total Bilirubin 1.4 mg/dL 0.4-1.5 Alkaline Phosphatase 60 U/L 30-110 Alt 31 U/L 14-54 Ast 50 U/L High 12-42 Egfr Non- 67.2 >60 Egfr 86.4 >60 19 Laboratory test 10/11/2012 [facility] B Type 1257.0 High 0- [address] Natriuretic pg/[place] [address] Peptide [phone] CBC Auto Diff 10/11/2012 [facility] White Blood 7.0 4.8-10.[address] Count 10^3/[place] [address] [phone] Red Blood Count 3.80 10^6/uL Low 4.0-5.4 Hemoglobin 13.3 g/dL Low 14.0-18.0 Hematocrit 41 % Low 42-52 Mean Corpuscular Volume 107 fL High 80-94 20 Mean Corpuscular Hemoglobin 35 pg High 27-31 Mean Corpuscular HGB Conc 33 g/dL 31-36 Red Cell Distribution Width 14 % 10.5-15 Platelet Count 227 10^3/uL 150-450 Mean Platelet Volume 9 um3 7.4-10.4 Abs Neutrophils 4.9 10^3/uL 1.5-7.7 Abs Lymphocytes 1.3 10^3/uL 1.0-4.8 Abs Monocytes 0.6 10^3/uL 0-0.8 Abs Eosinophils 0.1 10^3/uL 0-0.6 Abs Basophils 0 10^3/uL 0-0.2 Abs Nucleated RBC 0 10^3/uL Granulocyte % 69.9 % 38-83 Lymphocyte % 18.4 % Low 25-47 Monocyte % 9.1 % High 1-9 Eosinophil % 1.9 % 0-6 Basophil % 0.7 % 0-2 Nucleated Red Blood Cells % 0 Laboratory test 10/11/2012 [facility] Inr 3.86 High 0.87-0.[address] [place] [address] [phone] Comp Metabolic 09/27/2012 [facility] Sodium 139 mmol/L 133- [address] [place] [address] [phone] Potassium 3.5 mmol/L 3.5-5.0 Chloride 104 mmol/L 101-111 Co2 Carbon Dioxide 31.0 mmol/L 22-32 Anion Gap 4.0 mmol/L 2-11 Glucose 128 mg/dL High 70-100 Blood Urea Nitrogen 29 mg/dL High 6-24 Creatinine 0.90 mg/dL 0.50-1.40 BUN/Creatinine Ratio 32.2 High 8-20 Calcium 8.5 mg/dL 8.1-9.9 Total Protein 5.2 g/dL Low 6.2-8.1 Albumin 3.0 g/dL Low 3.2-5.2 Globulin 2.2 g/dL 2-4 Albumin/Globulin Ratio 1.4 1-3 Total Bilirubin 1.0 mg/dL 0.4-1.5 Alkaline Phosphatase 57 U/L 30-110 Alt 30 U/L 14-54 Ast 49 U/L High 12-42 Egfr Non- 84.7 >60 Egfr 108.9 >60 21 Laboratory test 09/27/2012 [facility] B Type 1268.0 High 0- [address] Natriuretic pg/[place] [address] Peptide [phone] CBC Auto Diff 09/27/2012 [facility] White Blood 6.4 4.8-10.[address] Count 10^3/[place] [address] [phone] Red Blood Count 3.69 10^6/uL Low 4.0-5.4 Hemoglobin 13.2 g/dL Low 14.0-18.0 Hematocrit 39 % Low 42-52 Mean Corpuscular Volume 106 fL High 80-94 22 Mean Corpuscular Hemoglobin 36 pg High 27-31 Mean Corpuscular HGB Conc 34 g/dL 31-36 Red Cell Distribution Width 14 % 10.5-15 Platelet Count 205 10^3/uL 150-450 Mean Platelet Volume 9 um3 7.4-10.4 Abs Neutrophils 4.3 10^3/uL 1.5-7.7 Abs Lymphocytes 1.2 10^3/uL 1.0-4.8 Abs Monocytes 0.7 10^3/uL 0-0.8 Abs Eosinophils 0.1 10^3/uL 0-0.6 Abs Basophils 0.1 10^3/uL 0-0.2 Abs Nucleated RBC 0 10^3/uL Granulocyte % 67.8 % 38-83 Lymphocyte % 18.0 % Low 25-47 Monocyte % 11.1 % High 1-9 Eosinophil % 2.3 % 0-6 Basophil % 0.8 % 0-2 Nucleated Red Blood Cells % 0 Laboratory test 09/27/2012 [facility] Inr 2.83 High 0.87-0.[address] [place] [address] [phone] Laboratory test 09/20/2012 [facility] B Type 1400.0 High 0- [address] Natriuretic pg/[place] [address] Peptide [phone] Comp Metabolic 09/20/2012 [facility] Sodium 137 133-[address] mmol/[place] [address] [phone] Potassium 3.7 mmol/L 3.5-5.0 Chloride 98 mmol/L Low 101-111 Co2 Carbon Dioxide 32.0 mmol/L 22-32 Anion Gap 7.0 mmol/L 2-11 Glucose 107 mg/dL High 70-100 Blood Urea Nitrogen 20 mg/dL 6-24 Creatinine 1.00 mg/dL 0.50-1.40 BUN/Creatinine Ratio 20.0 8-20 Calcium 8.7 mg/dL 8.1-9.9 Total Protein 5.2 g/dL Low 6.2-8.1 Albumin 3.2 g/dL 3.2-5.2 Globulin 2.0 g/dL 2-4 Albumin/Globulin Ratio 1.6 1-3 Total Bilirubin 1.6 mg/dL High 0.4-1.5 Alkaline Phosphatase 62 U/L 30-110 Alt 28 U/L 14-54 Ast 46 U/L High 12-42 Egfr Non- 75.0 >60 Egfr 96.4 >60 23 Cell Morphology 09/20/2012 [facility] Macrocytosis 1+ [address] [place] [address] [phone] Elliptocyte 1+ CBC Auto Diff 09/20/2012 [facility] White Blood 7.0 10^3/uL 4.8-10.[address] [place] [address] [phone] Red Blood Count 3.83 10^6/uL Low 4.0-5.4 Hemoglobin 13.6 g/dL Low 14.0-18.0 Hematocrit 41 % Low 42-52 Mean Corpuscular Volume 107 fL High 80-94 Mean Corpuscular Hemoglobin 36 pg High 27-31 Mean Corpuscular HGB Conc 33 g/dL 31-36 Red Cell Distribution Width 14 % 10.5-15 Platelet Count 208 10^3/uL 150-450 Mean Platelet Volume 9 um3 7.4-10.4 Abs Neutrophils 4.8 10^3/uL 1.5-7.7 Abs Lymphocytes 1.3 10^3/uL 1.0-4.8 Abs Monocytes 0.6 10^3/uL 0-0.8 Abs Eosinophils 0.2 10^3/uL 0-0.6 Abs Basophils 0.1 10^3/uL 0-0.2 Abs Nucleated RBC 0 10^3/uL Granulocyte % 69.1 % 38-83 Lymphocyte % 18.0 % Low 25-47 Monocyte % 9.1 % High 1-9 Eosinophil % 2.6 % 0-6 Basophil % 1.2 % 0-2 Nucleated Red Blood Cells % 0 Comp Metabolic Panel 09/13/2012 [facility] Sodium 140 mmol/L 133-[address] [place] [address] [phone] Potassium 3.6 mmol/L 3.5-5.0 Chloride 103 mmol/L 101-111 Co2 Carbon Dioxide 31.0 mmol/L 22-32 Anion Gap 6.0 mmol/L 2-11 Glucose 114 mg/dL High 70-100 Blood Urea Nitrogen 30 mg/dL High 6-24 Creatinine 0.90 mg/dL 0.50-1.40 BUN/Creatinine Ratio 33.3 High 8-20 Calcium 9.1 mg/dL 8.1-9.9 Total Protein 5.4 g/dL Low 6.2-8.1 Albumin 3.3 g/dL 3.2-5.2 Globulin 2.1 g/dL 2-4 Albumin/Globulin Ratio 1.6 1-3 Total Bilirubin 1.2 mg/dL 0.4-1.5 Alkaline Phosphatase 57 U/L 30-110 Alt 35 U/L 14-54 Ast 51 U/L High 12-42 Egfr Non- 85.0 >60 Egfr 109.3 >60 24 Laboratory test 09/13/2012 [facility] B Type 1393.0 High 0- [address] Natriuretic pg/[place] [address] Peptide [phone] CBC Auto Diff 09/13/2012 [facility] White Blood 6.0 4.8-10.[address] Count 10^3/[place] [address] [phone] Red Blood Count 3.94 10^6/uL Low 4.0-5.4 Hemoglobin 14.0 g/dL 14.0-18.0 Hematocrit 42 % 42-52 Mean Corpuscular Volume 107 fL High 80-94 25 Mean Corpuscular Hemoglobin 36 pg High 27-31 Mean Corpuscular HGB Conc 33 g/dL 31-36 Red Cell Distribution Width 14 % 10.5-15 Platelet Count 215 10^3/uL 150-450 Mean Platelet Volume 9 um3 7.4-10.4 Abs Neutrophils 4.3 10^3/uL 1.5-7.7 Abs Lymphocytes 1.1 10^3/uL 1.0-4.8 Abs Monocytes 0.5 10^3/uL 0-0.8 Abs Eosinophils 0.1 10^3/uL 0-0.6 Abs Basophils 0 10^3/uL 0-0.2 Abs Nucleated RBC 0 10^3/uL Granulocyte % 70.4 % 38-83 Lymphocyte % 19.0 % Low 25-47 Monocyte % 7.6 % 1-9 Eosinophil % 2.5 % 0-6 Basophil % 0.5 % 0-2 Nucleated Red Blood Cells % 0 CBC No Diff 09/03/2012 [facility] White Blood 6.6 10^3/uL 4.8 -10.[address] [place] [address] [phone] Red Blood Count 3.91 10^6/uL Low 4.0-5.4 Hemoglobin 13.7 g/dL Low 14.0-18.0 Hematocrit 42 % 42-52 Mean Corpuscular Volume 107 fL High 80-94 26 Mean Corpuscular Hemoglobin 35 pg High 27-31 Mean Corpuscular HGB Conc 33 g/dL 31-36 Red Cell Distribution Width 14 % 10.5-15 Platelet Count 249 10^3/uL 150-450 Mean Platelet Volume 9 um3 7.4-10.4 Laboratory test 09/03/2012 [facility] Inr 1.38 High 0.87-0.[address] [place] [address] [phone] Comp Metabolic 09/03/2012 [facility] Sodium 138 mmol/L 133- [address] [place] [address] [phone] Potassium 4.8 mmol/L 3.5-5.0 Chloride 99 mmol/L Low 101-111 Co2 Carbon Dioxide 30.0 mmol/L 22-32 Anion Gap 9.0 mmol/L 2-11 Glucose 104 mg/dL High 70-100 Blood Urea Nitrogen 29 mg/dL High 6-24 Creatinine 0.90 mg/dL 0.50-1.40 BUN/Creatinine Ratio 32.2 High 8-20 Calcium 9.0 mg/dL 8.1-9.9 Total Protein 5.6 g/dL Low 6.2-8.1 Albumin 3.2 g/dL 3.2-5.2 Globulin 2.4 g/dL 2-4 Albumin/Globulin Ratio 1.3 1-3 Total Bilirubin 1.0 mg/dL 0.4-1.5 Alkaline Phosphatase 57 U/L 30-110 Alt 27 U/L 14-54 Ast 49 U/L High 12-42 Egfr Non- 85.0 >60 Egfr 109.3 >60 27 Laboratory 09/03/2012 [facility] B Type 1259.0 High 0-100 [address] Natriuretic pg/[place] [address] Peptide [phone] Laboratory 08/29/2012 [facility] Inr 1.81 High 0.87-0.[address] [place] [address] [phone] Laboratory 08/21/2012 [facility] Inr 3.14 High 0.87-0.[address] [place] [address] [phone] CBC Auto Diff 07/27/2012 [facility] White Blood 6.6 4.8-10.[address] Count 10^3/[place] [address] [phone] Red Blood Count 3.80 10^6/uL Low 4.0-5.4 Hemoglobin 13.6 g/dL Low 14.0-18.0 Hematocrit 41 % Low 42-52 Mean Corpuscular Volume 107 fL High 80-94 29 Mean Corpuscular Hemoglobin 36 pg High 27-31 Mean Corpuscular HGB Conc 33 g/dL 31-36 Red Cell Distribution Width 14 % 10.5-15 Platelet Count 218 10^3/uL 150-450 Mean Platelet Volume 9 um3 7.4-10.4 Abs Neutrophils 4.7 10^3/uL 1.5-7.7 Abs Lymphocytes 1.1 10^3/uL 1.0-4.8 Abs Monocytes 0.5 10^3/uL 0-0.8 Abs Eosinophils 0.2 10^3/uL 0-0.6 Abs Basophils 0.1 10^3/uL 0-0.2 Abs Nucleated RBC 0.01 10^3/uL Granulocyte % 71.4 % 38-83 Lymphocyte % 16.4 % Low 25-47 Monocyte % 8.1 % 1-9 Eosinophil % 2.7 % 0-6 Basophil % 1.4 % 0-2 Nucleated Red Blood Cells % 0.2 Laboratory test 07/27/2012 [facility] Inr 3.28 High 0.87-0.97 30 finding [address] [place] [address] [phone] Iron & Iron 07/27/2012 [facility] Iron 143 g/dL 45-[address] [place] [address] [phone] Unsaturated Iron Binding 279 g/dL Total Iron Binding Capacity 422 g/dL 250-450 % Iron Saturation 34 % 15-55 Laboratory test 07/27/2012 [facility] Ferritin 27 ng/mL 24- 336 [address] [place] [address] [phone] CBC Auto Diff 06/14/2012 [facility] White Blood 5.5 10^3/uL 4.8-10.[address] [place] [address] [phone] Red Blood Count 3.79 10^6/uL Low 4.0-5.4 Hemoglobin 13.7 g/dL Low 14.0-18.0 Hematocrit 41 % Low 42-52 Mean Corpuscular Volume 107 fL High 80-94 Mean Corpuscular Hemoglobin 36 pg High 27-31 Mean Corpuscular HGB Conc 34 g/dL 31-36 Red Cell Distribution Width 14 % 10.5-15 Platelet Count 220 10^3/uL 150-450 Mean Platelet Volume 8 um3 7.4-10.4 Abs Neutrophils 3.4 10^3/uL 1.5-7.7 Abs Lymphocytes 1.3 10^3/uL 1.0-4.8 Abs Monocytes 0.6 10^3/uL 0-0.8 Abs Eosinophils 0.1 10^3/uL 0-0.6 Abs Basophils 0 10^3/uL 0-0.2 Abs Nucleated RBC 0 10^3/uL Granulocyte % 61.8 % 38-83 Lymphocyte % 23.6 % Low 25-47 Monocyte % 11.3 % High 1-9 Eosinophil % 2.5 % 0-6 Basophil % 0.8 % 0-2 Nucleated Red Blood Cells % 0 Laboratory test 06/14/2012 [facility] Inr 2.23 High 0.87-0.97 31 finding [address] [place] [address] [phone] Laboratory test 05/14/2012 [facility] Inr 2.95 High 0.82-1.17 32 finding [address] [place] [address] [phone] Comp Metabolic 05/01/2012 [facility] Sodium 137 mmol/L 133- 145 Panel [address] [place] [address] [phone] Potassium 4.8 mmol/L 3.5-5.0 Chloride 100 mmol/L Low 101-111 Co2 Carbon Dioxide 30.0 mmol/L 22-32 Anion Gap 7.0 mmol/L 2-11 Glucose 91 mg/dL 70-100 Blood Urea Nitrogen 14 mg/dL 6-24 Creatinine 0.80 mg/dL 0.50-1.40 BUN/Creatinine Ratio 17.5 8-20 Calcium 9.0 mg/dL 8.1-9.9 Total Protein 5.4 g/dL Low 6.2-8.1 Albumin 3.8 g/dL 3.2-5.2 Globulin 1.6 g/dL Low 2-4 Albumin/Globulin Ratio 2.4 1-3 Total Bilirubin 1.2 mg/dL 0.4-1.5 Alkaline Phosphatase 80 U/L 30-110 Alt 48 U/L 14-54 Ast 54 U/L High 12-42 Egfr Non- 97.3 >60 Egfr 125.2 >60 33 Lipid Profile 05/01/2012 [facility] Triglycerides 49 mg/dL 40 -200 (Trig/Chol/HDL) [address] [place] [address] [phone] Cholesterol 123 mg/dL Less than 200 HDL Cholesterol 61 mg/dL High 40-60 34 Cholesterol/HDL Ratio 2.0 Average 1-4.44 LDL Cholesterol 52.2 mg/dL Less Than 100 35 Laboratory test 05/01/2012 [facility] PSA Screening 1.0 ng/mL 0-4.0 [address] [place] [address] [phone] CBC No Diff 05/01/2012 [facility] White Blood 5.5 4.8-10.[address] Count 10^3/[place] [address] [phone] Red Blood Count 4.03 10^6/uL 4.0-5.4 Hemoglobin 14.5 g/dL 14.0-18.0 Hematocrit 44 % 42-52 Mean Corpuscular Volume 108 fL High 80-94 37 Mean Corpuscular Hemoglobin 36 pg High 27-31 Mean Corpuscular HGB Conc 33 g/dL 31-36 Red Cell Distribution Width 13 % 10.5-15 Platelet Count 222 10^3/uL 150-450 Mean Platelet Volume 9 um3 7.4-10.4 Laboratory test 05/01/2012 [facility] B Type 759.0 High 0-[address] Natriuretic pg/[place] [address] Peptide [phone] Vitamin D, 25 05/01/2012 [facility] 25-Hydroxy <4.0 ng/mL Hydroxy [address] Vitamin D2 [place] [address] [phone] 25-Hydroxy Vitamin D3 33 ng/mL 25-Hydroxy Vitamin D Total 33 ng/mL 38 Laboratory test 04/10/2012 [facility] Inr 3.47 High 0.82-1.17 [address] [place] [address] [phone] CBC No Diff 03/02/2012 [facility] White Blood 6.2 4.8-10.[address] Count 10^3/[place] [address] [phone] Red Blood Count 3.79 10^6/uL Low 4.0-5.4 Hemoglobin 13.9 g/dL Low 14.0-18.0 Hematocrit 41 % Low 42-52 Mean Corpuscular Volume 107 fL High 80-94 Mean Corpuscular Hemoglobin 37 pg High 27-31 Mean Corpuscular HGB Conc 34 g/dL 31-36 Red Cell Distribution Width 14 % 10.5-15 Platelet Count 216 10^3/uL 150-450 Mean Platelet Volume 9 um3 7.4-10.4 Comp Metabolic Panel 03/02/2012 [facility] Sodium 135 mmol/L 133-[address] [place] [address] [phone] Potassium 4.3 mmol/L 3.5-5.0 Chloride 102 mmol/L 101-111 Co2 Carbon Dioxide 25.0 mmol/L 22-32 Anion Gap 8.0 mmol/L 2-11 Glucose 99 mg/dL 70-100 Blood Urea Nitrogen 17 mg/dL 6-24 Creatinine 0.80 mg/dL 0.50-1.40 BUN/Creatinine Ratio 21.3 High 8-20 Calcium 8.8 mg/dL 8.1-9.9 Total Protein 5.4 GM/DL Low 6.2-8.1 Albumin 3.6 GM/DL 3.2-5.2 Globulin 1.8 GM/DL Low 2-4 Albumin/Globulin Ratio 2.0 1-3 Total Bilirubin 1.0 mg/dL 0.1-1.0 40 Alkaline Phosphatase 80 U/L 30-110 Alt 55 U/L High 14-54 Ast 63 U/L High 12-42 Egfr Non- 97.3 >60 Egfr 125.2 >60 41 Laboratory test 03/02/2012 [facility] Troponin I 0.01 NG/ML [address] [place] [address] [phone] Laboratory test 03/02/2012 [facility] B Type 714.0 High 0-[address] Natriuretic pg/[place] [address] Peptide [phone] Laboratory test 03/02/2012 [facility] Inr 3.06 High 0.82- [address]17 [place] [address] [phone] Laboratory test 02/15/2012 [facility] Inr 1.98 High 0.82- [address] [place], [place] [id number] [phone] 1 Because ethnic data is not always readily available, this report includes an eGFR for both -Americans and non- Americans. The National Kidney Disease Education Program (NKDEP) does not endorse the use of the MDRD equation for patients that are not between the ages of 18 and 70, are , have extremes of body size, muscle mass, or nutritional status, or are non- or non-. According to the National Kidney Foundation, irrespective of diagnosis, the stage of the disease is based on the level of kidney function: Stage Description GFR(mL/min/1.73 m(2)) 1 Kidney damage with normal or decreased GFR 90 2 Kidney damage with mild decrease in GFR 60-89 3 Moderate decrease in GFR 30-59 4 Severe decrease in GFR 15-29 5 Kidney failure <15 (or dialysis) 2 Desirable: <150 Borderline High: 150-199 High: 200-499 Very High: >500 3 Result in log IU/mL is Undetected. EBV DNA is not detected. ADDITIONAL INFORMATION This laboratory-developed, real-time PCR assay has a quantification range of 100 to 5,000,000 IU/mL (2.00 log IU/mL to 6.70 log IU/mL). This test was developed using an analyte specific reagent. Its performance characteristics were determined by [facility] in a manner consistent with CLIA requirements. This test has not been cleared or approved by the U.S. Food and Drug Administration. Test Performed by: [facility] - [address] [address] 4 Result in log IU/mL is Undetected. ADDITIONAL INFORMATION The quantification range of this assay is 35 to 10,000,000 IU/mL (1.54 log to 7.00 log IU/mL). Testing was performed using the giuliana CMV test ([employer] with the giuliana [id number] System. Test Performed by: [facility] - [address] [address] 5 REFERENCE VALUE 4.0 - 20.0 (Trough) ADDITIONAL INFORMATION Target steady-state trough concentrations vary depending on the type of transplant, concomitant immunosuppression, clinical/institutional protocols, and time post-transplant. Results should be interpreted in conjunction with this clinical information and any physical signs/symptoms of rejection/toxicity. Testing performed by Liquid Chromatography-Tandem Mass Spectrometry (LC-MS/MS). This test was developed and its performance characteristics determined by [facility] in a manner consistent with CLIA requirements. This test has not been cleared or approved by the U.S. Food and Drug Administration. Test Performed by: [facility] - [address] [address] 6 Test Name Result Flag Reference Units Tacrolimus ng/mL REFERENCE RANGE (ng/mL) +Steroids +Mycrophenolate (or azathioprine) PostTransplant Kidney Kid/Panc Liver Heart 0-3 months 9-14 11-14 8-12 12-15 4-6 months 8-12 9-12 6-9 9-12 6-12 months 6-8 8-9 4-8 8-11 >12 months 4-8 6-9 4-8 6-8 =Steroids + Sirolimus (5-15 ng/ml) 0-3 months 6-8 6-9 N/A 3-6 months 3-6 6-8 4-6 >6 months 3-6 3-6 4-6 NOTE: Immunosuppressant blood levels must be interpreted in the specific context of the patient, taking into account various risk factors and clinical variables. Methodology: Liquid Chromatography-Tandem Mass Spectrometry Test developed and characteristics determined by [facility] [place] [address] Test Name Result Flag Reference Units Tacrolimus [] ng/mL REFERENCE RANGE (ng/mL) +Steroids +Mycrophenolate (or azathioprine) PostTransplant Kidney Kid/Panc Liver Heart 0-3 months 9-14 11-14 8-12 12-15 4-6 months 8-12 9-12 6-9 9-12 6-12 months 6-8 8-9 4-8 8-11 >12 months 4-8 6-9 4-8 6-8 =Steroids + Sirolimus (5-15 ng/ml) 0-3 months 6-8 6-9 N/A 3-6 months 3-6 6-8 4-6 >6 months 3-6 3-6 4-6 NOTE: Immunosuppressant blood levels must be interpreted in the specific context of the patient, taking into account various risk factors and clinical variables. Methodology: Liquid Chromatography-Tandem Mass Spectrometry Test developed and characteristics determined by [facility] [place] [address] 7 Result in log IU/mL is Undetected. ADDITIONAL INFORMATION The quantification range of this assay is 35 to 10,000,000 IU/mL (1.54 log to 7.00 log IU/mL). Testing was performed using the giuliana CMV test ([employer] with the giuliana 6800 System. Test Performed by: [facility] [place] [address] 8 Result in log IU/mL is <2.00. EBV DNA level detected is <100 IU/mL (<2.00 log IU/mL). This assay cannot accurately quantify EBV DNA below this level. ADDITIONAL INFORMATION This laboratory-developed, real-time PCR assay has a quantification range of 100 to 5,000,000 IU/mL (2.00 log IU/mL to 6.70 log IU/mL). This test was developed using an analyte specific reagent. Its performance characteristics were determined by [facility] in a manner consistent with CLIA requirements. This test has not been cleared or approved by the U.S. Food and Drug Administration. Test Performed by: [facility] - [address] [address] 9 Reference Range (ng/mL) +Steroids + Mycrophenolate (or azathioprine) Post Transplant Kidney Kid/Panc Liver Heart 0-3 months 9-14 11-14 8-12 12-15 4-6 months 8-12 9-12 6-9 9-12 6-12 months 6-8 8-9 4-8 8-11 >12 months 4-8 6.9 4-8 6-8 +Steriods + Sirolimus (5-15 ng/mL) 0-3 months 6-8 6-9 N/A 3-6 months 3-6 6-8 4-6 >6 months 3-6 3-6 4-6 NOTE: Immunosuppressant blood levels must be interpreted in the specific context of the patient, taking into account various risk factors and clinical variables. Testing performed by: [address] [address] 10 REFERENCE VALUE 4.0 - 20.0 (Trough) ADDITIONAL INFORMATION Target steady-state trough concentrations vary depending on the type of transplant, concomitant immunosuppression, clinical/institutional protocols, and time post-transplant. Results should be interpreted in conjunction with this clinical information and any physical signs/symptoms of rejection/toxicity. Testing performed by Liquid Chromatography-Tandem Mass Spectrometry (LC-MS/MS). This test was developed and its performance characteristics determined by [facility] in a manner consistent with CLIA requirements. This test has not been cleared or approved by the U.S. Food and Drug Administration. Test Performed by: [facility] [address] [place] [address] 11 Desirable: <150 Borderline High: 150-199 High: 200-499 Very High: >500 12 Because ethnic data is not always readily available, this report includes an eGFR for both -Americans and non- Americans. The National Kidney Disease Education Program (NKDEP) does not endorse the use of the MDRD equation for patients that are not between the ages of 18 and 70, are , have extremes of body size, muscle mass, or nutritional status, or are non- or non-. According to the National Kidney Foundation, irrespective of diagnosis, the stage of the disease is based on the level of kidney function: Stage Description GFR(mL/min/1.73 m(2)) 1 Kidney damage with normal or decreased GFR 90 2 Kidney damage with mild decrease in GFR 60-89 3 Moderate decrease in GFR 30-59 4 Severe decrease in GFR 15-29 5 Kidney failure <15 (or dialysis) 13 Reference Range (ng/mL) +Steroids + Mycrophenolate (or azathioprine) Post Transplant Kidney Kid/Panc Liver Heart 0-3 months 9-14 11-14 8-12 12-15 4-6 months 8-12 9-12 6-9 9-12 6-12 months 6-8 8-9 4-8 8-11 >12 months 4-8 6.9 4-8 6-8 +Steriods + Sirolimus (5-15 ng/mL) 0-3 months 6-8 6-9 N/A 3-6 months 3-6 6-8 4-6 >6 months 3-6 3-6 4-6 NOTE: Immunosuppressant blood levels must be interpreted in the specific context of the patient, taking into account various risk factors and clinical variables. Testing performed by: [facility] [address] [place] [address] [place] [address] 14 REFERENCE VALUE 4.0 - 20.0 (Trough) ADDITIONAL INFORMATION Target steady-state trough concentrations vary depending on the type of transplant, concomitant immunosuppression, clinical/institutional protocols, and time post-transplant. Results should be interpreted in conjunction with this clinical information and any physical signs/symptoms of rejection/toxicity. Testing performed by Liquid Chromatography-Tandem Mass Spectrometry (LC-MS/MS). This test was developed and its performance characteristics determined by [facility] in a manner consistent with CLIA requirements. This test has not been cleared or approved by the U.S. Food and Drug Administration. Test Performed by: [facility] [address] [place] [address] 15 Desirable: <150 Borderline High: 150-199 High: 200-499 Very High: >500 16 Because ethnic data is not always readily available, this report includes an eGFR for both -Americans and non- Americans. The National Kidney Disease Education Program (NKDEP) does not endorse the use of the MDRD equation for patients that are not between the ages of 18 and 70, are , have extremes of body size, muscle mass, or nutritional status, or are non- or non-. According to the National Kidney Foundation, irrespective of diagnosis, the stage of the disease is based on the level of kidney function: Stage Description GFR(mL/min/1.73 m(2)) 1 Kidney damage with normal or decreased GFR 90 2 Kidney damage with mild decrease in GFR 60-89 3 Moderate decrease in GFR 30-59 4 Severe decrease in GFR 15-29 5 Kidney failure <15 (or dialysis) 17 Potassium reference range changed effective 03/16/14 18 Because ethnic data is not always readily available, this report includes an eGFR for both -Americans and non- Americans. The National Kidney Disease Education Program (NKDEP) does not endorse the use of the MDRD equation for patients that are not between the ages of 18 and 70, are , have extremes of body size, muscle mass, or nutritional status, or are non- or non-. According to the National Kidney Foundation, irrespective of diagnosis, the stage of the disease is based on the level of kidney function: Stage Description GFR(mL/min/1.73 m(2)) 1 Kidney damage with normal or decreased GFR 90 2 Kidney damage with mild decrease in GFR 60-89 3 Moderate decrease in GFR 30-59 4 Severe decrease in GFR 15-29 5 Kidney failure <15 (or dialysis) 19 Because ethnic data is not always readily available, this report includes an eGFR for both -Americans and non- Americans. The National Kidney Disease Education Program (NKDEP) does not endorse the use of the MDRD equation for patients that are not between the ages of 18 and 70, are , have extremes of body size, muscle mass, or nutritional status, or are non- or non-. According to the National Kidney Foundation, irrespective of diagnosis, the stage of the disease is based on the level of kidney function: Stage Description GFR(mL/min/1.73 m(2)) 1 Kidney damage with normal or decreased GFR 90 2 Kidney damage with mild decrease in GFR 60-89 3 Moderate decrease in GFR 30-59 4 Severe decrease in GFR 15-29 5 Kidney failure <15 (or dialysis) 20 Consistent with previous results. 21 Because ethnic data is not always readily available, this report includes an eGFR for both -Americans and non- Americans. The National Kidney Disease Education Program (NKDEP) does not endorse the use of the MDRD equation for patients that are not between the ages of 18 and 70, are , have extremes of body size, muscle mass, or nutritional status, or are non- or non-. According to the National Kidney Foundation, irrespective of diagnosis, the stage of the disease is based on the level of kidney function: Stage Description GFR(mL/min/1.73 m(2)) 1 Kidney damage with normal or decreased GFR 90 2 Kidney damage with mild decrease in GFR 60-89 3 Moderate decrease in GFR 30-59 4 Severe decrease in GFR 15-29 5 Kidney failure <15 (or dialysis) 22 Consistent with previous results. 23 Because ethnic data is not always readily available, this report includes an eGFR for both -Americans and non- Americans. The National Kidney Disease Education Program (NKDEP) does not endorse the use of the MDRD equation for patients that are not between the ages of 18 and 70, are , have extremes of body size, muscle mass, or nutritional status, or are non- or non-. According to the National Kidney Foundation, irrespective of diagnosis, the stage of the disease is based on the level of kidney function: Stage Description GFR(mL/min/1.73 m(2)) 1 Kidney damage with normal or decreased GFR 90 2 Kidney damage with mild decrease in GFR 60-89 3 Moderate decrease in GFR 30-59 4 Severe decrease in GFR 15-29 5 Kidney failure <15 (or dialysis) 24 Because ethnic data is not always readily available, this report includes an eGFR for both -Americans and non- Americans. The National Kidney Disease Education Program (NKDEP) does not endorse the use of the MDRD equation for patients that are not between the ages of 18 and 70, are , have extremes of body size, muscle mass, or nutritional status, or are non- or non-. According to the National Kidney Foundation, irrespective of diagnosis, the stage of the disease is based on the level of kidney function: Stage Description GFR(mL/min/1.73 m(2)) 1 Kidney damage with normal or decreased GFR 90 2 Kidney damage with mild decrease in GFR 60-89 3 Moderate decrease in GFR 30-59 4 Severe decrease in GFR 15-29 5 Kidney failure <15 (or dialysis) 25 Consistent with previous results. 26 Consistent with previous results. 27 Because ethnic data is not always readily available, this report includes an eGFR for both -Americans and non- Americans. The National Kidney Disease Education Program (NKDEP) does not endorse the use of the MDRD equation for patients that are not between the ages of 18 and 70, are , have extremes of body size, muscle mass, or nutritional status, or are non- or non-. According to the National Kidney Foundation, irrespective of diagnosis, the stage of the disease is based on the level of kidney function: Stage Description GFR(mL/min/1.73 m(2)) 1 Kidney damage with normal or decreased GFR 90 2 Kidney damage with mild decrease in GFR 60-89 3 Moderate decrease in GFR 30-59 4 Severe decrease in GFR 15-29 5 Kidney failure <15 (or dialysis) 28 FAX RESULTS TO [facility] AT [phone] 29 Consistent with previous results. 30 Please note the change in INR reference range effective 12. The INR(International Normalized Ratio) was adopted by the World Health Organization (WHO) in 1982 as a standardized system of reporting PT (Prothrombin Time). The Centers for Disease Control (CDC) states that reporting of PT results in INR only is the preferred method. Recommended INR for Patients on Oral Anticoagulants Prophylaxis 2.0 - 3.0 Treatment of thrombosis 2.0 - 3.0 Prevention of embolism 2.0 - 3.0 Prevention of embolism from prosthetic heart valves 2.5 - 3.5 31 Please note the change in INR reference range effective 12. The INR(International Normalized Ratio) was adopted by the World Health Organization (WHO) in 1983 as a standardized system of reporting PT (Prothrombin Time). The Centers for Disease Control (CDC) states that reporting of PT results in INR only is the preferred method. Recommended INR for Patients on Oral Anticoagulants Prophylaxis 2.0 - 3.0 Treatment of thrombosis 2.0 - 3.0 Prevention of embolism 2.0 - 3.0 Prevention of embolism from prosthetic heart valves 2.5 - 3.5 32 The INR(International Normalized Ratio) was adopted by the World Health Organization (WHO) in 1982 as a standardized system of reporting PT (Prothrombin Time). The Centers for Disease Control (CDC) states that reporting of PT results in INR only is the preferred method. Recommended INR for Patients on Oral Anticoagulants Prophylaxis 2.0 - 3.0 Treatment of thrombosis 2.0 - 3.0 Prevention of embolism 2.0 - 3.0 Prevention of embolism from prosthetic heart valves 2.5 - 3.5 33 Because ethnic data is not always readily available, this report includes an eGFR for both -Americans and non- Americans. The National Kidney Disease Education Program (NKDEP) does not endorse the use of the MDRD equation for patients that are not between the ages of 18 and 70, are , have extremes of body size, muscle mass, or nutritional status, or are non- or non-. According to the National Kidney Foundation, irrespective of diagnosis, the stage of the disease is based on the level of kidney function: Stage Description GFR(mL/min/1.73 m(2)) 1 Kidney damage with normal or decreased GFR 90 2 Kidney damage with mild decrease in GFR 60-89 3 Moderate decrease in GFR 30-59 4 Severe decrease in GFR 15-29 5 Kidney failure <15 (or dialysis) 34 HDL Interpretation: Undesirable: High Risk: Less than 40 MG/DL Desirable: Low Risk: Greater than 60 MG/DL 35 LDL Interpretation: Low Risk Optimal Level: LDL Less than 100 MG/DL Near or Above Optimal: LDL 100-129 MG/DL Borderline High Risk: LDL 130-159 MG/DL High Risk: LDL 160-189 MG/DL Very High Risk: LDL Greater than 189 MG/DL 36 Serum levels of PSA measured using the Jaciel Raquel DXI Hybritech immunoassay should not be interpreted as absolute evidence of the presence or absence of disease. The PSA value should be used in conjunction with other pertinent clinical diagnostic procedures. The values obtained with different assay methods or kits cannot be used interchangeably. 37 specimen was incubated for 30 minutes in 37 degree water bath. No significant changes seen. 38 -- REFERENCE VALUE -- 25-HYDROXY D TOTAL (D2+D3) Optimum levels in the normal population are 25-80 Test Performed by: [address] [address] Lumber Driver: Jean Carlos Saldana III, M.D. 39 The INR(International Normalized Ratio) was adopted by the World Health Organization (WHO) in 1983 as a standardized system of reporting PT (Prothrombin Time). The Centers for Disease Control (CDC) states that reporting of PT results in INR only is the preferred method. Recommended INR for Patients on Oral Anticoagulants Prophylaxis 2.0 - 3.0 Treatment of thrombosis 2.0 - 3.0 Prevention of embolism 2.0 - 3.0 Prevention of embolism from prosthetic heart valves 2.5 - 3.5 40 A metabolite of Naproxen, O-desmethylnaproxen, has been shown to interfere with the Jendrassik-Malinta method for measuring total bilirubin. Samples from patients who have taken Naproxen have shown spurious elevation in total bilirubin levels. 41 Because ethnic data is not always readily available, this report includes an eGFR for both -Americans and non- Americans. The National Kidney Disease Education Program (NKDEP) does not endorse the use of the MDRD equation for patients that are not between the ages of 18 and 70, are , have extremes of body size, muscle mass, or nutritional status, or are non- or non-. According to the National Kidney Foundation, irrespective of diagnosis, the stage of the disease is based on the level of kidney function: Stage Description GFR(mL/min/1.73 m(2)) 1 Kidney damage with normal or decreased GFR 90 2 Kidney damage with mild decrease in GFR 60-89 3 Moderate decrease in GFR 30-59 4 Severe decrease in GFR 15-29 5 Kidney failure <15 (or dialysis) 42 Reference Range and Interpretation: TnI (ng/ml) Interpretation Less Than 0.06 ng/mL Not supportive of diagnosis of VT 0.06 - 0.50 ng/ml Indeterminate: suggest serial studies if clinically indicated. Greater than 0.5 ng/mL Consistent with diagnosis of VT 43 Effective February 13, 2012, in conjunction with the upgrade of the hospital information system, [facility] will release the International Normalized Ratio (INR) only. Patient reports will no longer contain prothrombin time (PT) results in seconds. This allows for consistency in patient evaluation and treatment. The INR was adopted by the World Health Organization (WHO) in 1983 as a standardized system of reporting PT. The Centers for Disease Control (CDC) states that reporting of PT results in INR only is the preferred method. Recommended INR for Patients on Oral Anticoagulants Prophylaxis 2.0 - 3.0 Treatment of thrombosis 2.0 - 3.0 Prevention of embolism 2.0 - 3.0 Prevention of embolism from prosthetic heart valves 2.5 - 3.5 44 Recommended INR for Patients on Oral Anticoagulants Prophylaxis 2.0 - 3.0 Treatment of thrombosis 2.0 - 3.0 Prevention of embolism 2.0 - 3.0 Prevention of embolism from prosthetic heart valves 2.5 - 3.5 Procedures Date Code Description Status 09/24/2018 14573 Inject/Drain Joint/Bursa Major W/O US Completed 04/20/2017 [id number] Colonoscopy Completed 10/22/2012 [id number] EKG, Interpretation Only Completed 10/21/2012 62597 EKG, Interpretation Only Completed 09/26/2012 33668 Icd Eval With Inerative Adjustmt Dual Lead System Completed 07/06/2012 [id number] Colonoscopy Completed 06/07/2012 78056 Icd Check Single,Dual Or Multiple In Person W/DR Incl Completed Heart Rhyth 03/16/2012 65488 EKG Tracing & Interpretation Completed 03/03/2012 46933 EKG, Interpretation Only Completed 03/02/2012 22789 EKG, Interpretation Only Completed 06/24/2002 [id number] Colonoscopy Completed Encounters Type Date Location Provider Dx Diagnosis Office Visit 09/24/2018 [facility] Dalton, M25.562 Pain in left knee 1:30p Services Of Pratik Stock M25.462 Effusion, left knee M17.12 Unilateral primary osteoarthritis, left knee M23.8x2 Other internal derangements of left knee Office Visit 04/11/2018 8:00a Orthopedic Terry S63.653D Sprain of MCP Services Of MD Martinez joint of left C.M.A. middle finger, subs S63.655D Sprain of MCP joint of left ring finger, subs Office 03/15/2018 [facility] Gastroenterology Laz Dietrich K21.9 Gastro-esophageal Visit 9:45a MD Carter reflux disease without esophagitis Z94.1 Heart transplant status D12.6 Benign neoplasm of colon, unspecified D64.9 Anemia, unspecified Office Visit 02/28/2018 8:15a Orthopedic Terry S63.653A Sprain of MCP Services Of MD Martinez joint of left C.M.A. middle finger, init S63.655A Sprain of MCP joint of left ring finger, init Office Visit 03/05/2015 Orthopedic Terry S92.511A Disp fx of proximal 2:20p Services Of Montrell Sánchez phalanx of right C.M.A. lesser toe(s), init Office Visit 10/22/2012 Jenny Carmona 425.9 Cardiomyopathy 9:54a Cardiology Montrell Lanza Secondary Unspecified Office Visit 10/21/2012 Jenny Carmona 786.50 Pain Chest Unspec 3:43p Cardiology Montrell Lanza 786.09 Dyspnea & Respiratory Abnormalities Other 427.31 Atrial Fibrillation Office Visit 09/26/2012 10:45a Burak Hercules 425.4 Cardiomyopathy Other Cardiology Of Monterll Ramos Prim Mony 428.0 Congestive Heart Failure Unspecified 414.9 Ischemic Heart Disease Chronic Unspec 427.1 Paroxysmal Ventricular Tachycardia Office Visit 07/12/2012 12:00p Burak Hercules 414.9 Ischemic Heart Of Mony Ramos M.D. Disease Chronic Unspec 425.4 Cardiomyopathy Other Prim 428.0 Congestive Heart Failure Unspecified 427.1 Paroxysmal Ventricular Tachycardia Office Visit 06/07/2012 2:00p [facility] Josh Hercules 427.1 Paroxysmal Of Mony Ramos M.D. Ventricular Tachycardia 425.4 Cardiomyopathy Other Prim 414.9 Ischemic Heart Disease Chronic Unspec Office Visit 03/16/2012 9:30a Burak Hercules 425.4 Cardiomyopathy Other Cardiology Of Montrell Ramos Prim Animal Keeper 414.9 Ischemic Heart Disease Chronic Unspec 427.31 Atrial Fibrillation Office Visit 03/03/2012 Jenny Carmona 425.9 Cardiomyopathy 4:53p Cardiology Montrell Lanza Secondary Unspecified 780.4 Dizziness & Giddiness 427.1 Paroxysmal Ventricular Tachycardia 796.3 Blood Pressure Reading Low Nonspecified Office Visit 03/02/2012 11:00a Burak Hercules 425.4 Cardiomyopathy Other Cardiology Of Monterll Ramos Prim Animal Keeper 427.1 Paroxysmal Ventricular Tachycardia Office Visit 06/22/2009 4:00p Neurosurgery Alberto Vega 721.1 Spondylosis Services Of Mony Edwards M.D. Cervical W/ Myelopathy Office Visit 06/15/2009 9:00a Neurosurgery Alberto Chopra1.1 Spondylosis Services Of Mony Edwards M.D. Cervical W/ Myelopathy Plan of Treatment 10/31/2018 - Balbina Dalton M.D.M25.562 Pain in left kneeFollow up:Follow up: Synv[employer] authorization needed. Follow up appointment LACEY.left kneeM25.462 Effusion, left kneeM17.12 Unilateral primary osteoarthritis, left knee
[2018-11-10 12:58] VITALS: BP 130/90
--- NOTE | 2018-11-10 13:00 | ED ---
Lower Extremity - HPI Summary HPI Summary: Patient is a 73-year-old male with a hx of 2 DVT's, one spontaneous and one following a surgical procedure, presenting to the ED with a concern for DVT. He states he called his PCP due to some pain to the posterior knee which is radiating down through the calf. No notable swelling or erythema. No warmth. Denies any injury. He is currently not on blood thinners. He denies any other pain or concerns. Denies any shortness of breath. - History of Current Complaint Chief Complaint: EDExtremityLower Stated Complaint: NEEDS ULTRASOUND ON LEFT LEG PER PT Time Seen by Provider: 11/10/18 11:47 Hx Obtained From: Patient Onset of Pain: Hours Onset/Duration: Hours Severity Initially: Moderate Severity Currently: Moderate Pain Intensity: 4 Pain Scale Used: 0-10 Numeric Timing: Constant Location: Is Discrete @ - left posterior knee/calf pain Associated Signs And Symptoms: Positive: Swelling Aggravating Factor(s): Standing, Ambulation Alleviating Factor(s): Rest Able to Bear Weight: No - Risk Factors Gout Risk Factors: Negative DVT Risk Factors: Negative Septic Arthritis Risk Factor: Negative - Allergies/Home Medications Allergies/Adverse Reactions: Allergies Allergy/AdvReac Type Severity Reaction Status Date / Time chlorhexidine Allergy See Comment Verified 11/10/18 12:14 quinine Allergy Unknown Verified 11/10/18 12:14 Reaction Details PMH/Surg Hx/FS Hx/Imm Hx Previously Healthy: Yes Endocrine/Hematology History: Reports: Hx Anticoagulant Therapy - COUMADIN, ASPIRIN, Hx Anemia Denies: Hx Blood Disorders, Hx Blood Transfusions, Hx Bone Marrow Disease, Hx Diabetes, Hx Systemic Lupus Erythematosus, Hx Sickle Cell Disease, Hx Thyroid Disease, Hx Unexplained Bleeding Cardiovascular History: Reports: Hx Auto Implanted Cardiovert Defib, Hx Cardiomegaly, Hx Congestive Heart Failure, Hx Hypercholesterolemia, Hx Hypotension, Hx Hypertension, Hx Pacemaker/ICD - FEBRUARY 2014, Other Cardiovascular Problems/Disorders Respiratory History: Reports: Hx Asthma - EXERCISE INDUCED, Hx Chronic Obstructive Pulmonary Disease (COPD), Hx Pneumonia, Hx Seasonal Allergies Denies: Other Respiratory Problems/Disorders Musculoskeletal History: Reports: Hx Arthritis, Hx Orthopedic Injury - left knee injury, Hx Osteoporosis, Hx Tendonitis Denies: Hx Back Problems, Hx Bursitis, Hx Fibromyalgia, Hx Gout, Hx Scoliosis Sensory History: Reports: Hx Cataracts - removed, Hx Contacts or Glasses Denies: Hx Eye Injury, Hx Eye Prosthesis, Hx Glaucoma, Hx Macular Degeneration, Hx Vision Problem, Hx Deafness, Hx Hearing Aid, Hx Hearing Problem , Other Sensory Impairments Opthamlomology History: Reports: Hx Cataracts - removed, Hx Contacts or Glasses Denies: Hx Eye Injury, Hx Eye Prosthesis, Hx Glaucoma, Hx Macular Degeneration, Hx Vision Problem, Other Sensory Impairments Psychiatric History: Reports: Hx Anxiety, Hx Depression - Cancer History Cancer Type, Location and Year: lymphoma, REMISSION SINCE 1986 Hx Chemotherapy: Yes Hx Radiation Therapy: No - Surgical History Surgery Procedure, Year, and Place: S/P HEART TRANSPLANT LONG STEROID USE. PACEMAKER. HERNIA REPAIRS (INGUINAL AND HIATAL). PENILE IMPLANT Hx Anesthesia Reactions: No - Immunization History Date of Tetanus Vaccine: Unk Date of Influenza Vaccine: Fall 2011 Infectious Disease History: No Infectious Disease History: Reports: Hx Shingles Denies: Hx Clostridium Difficile, Hx Hepatitis, Hx Human Immunodeficiency Virus (HIV), Hx Tuberculosis, Traveled Outside the [place] in Last 30 Days - Family History Known Family History: Positive: Hypertension - Social History Occupation: Unemployed Lives: With Family Alcohol Use: None Hx Substance Use: No Substance Use Type: Reports: None Hx Tobacco Use: Yes Smoking Status (MU): Former Smoker Have You Smoked in the Last Year: No Review of Systems Negative: Fever, Chills, Fatigue, Skin Diaphoresis Negative: Chest Pain Negative: Shortness Of Breath, Cough Negative: Abdominal Pain, Vomiting, Diarrhea Positive: Myalgia - left calf pain. Negative: Decreased ROM, Edema Skin: Negative Neurological: Negative All Other Systems Reviewed And Are Negative: Yes Physical Exam Triage Information Reviewed: Yes Vital Signs On Initial Exam: Initial Vitals Temp Pulse Resp BP Pulse Ox 97.9 F 71 18 108/93 100 11/10/18 11:28 11/10/18 11:28 11/10/18 11:28 11/10/18 11:28 11/10/18 11:28 Vital Signs Reviewed: Yes Appearance: Positive: Well-Appearing, Well-Nourished Skin: Positive: Warm, Skin Color Reflects Adequate Perfusion Head/Face: Positive: Normal Head/Face Inspection Eyes: Positive: EOMI, Conjunctiva Clear Neck: Positive: Supple Respiratory/Lung Sounds: Positive: Clear to Auscultation, Breath Sounds Present Cardiovascular: Positive: RRR, Pulses are Symmetrical in both Upper and Lower Extremities Musculoskeletal: Positive: Pain @ - left calf and posterior knee Neurological: Positive: Speech Normal Psychiatric: Positive: Affect/Mood Appropriate Diagnostics - Vital Signs Vital Signs Temp Pulse Resp BP Pulse Ox 11/10/18 11:28 97.9 F 71 18 108/93 100 - Laboratory Lab Statement: Any lab studies that have been ordered have been reviewed, and results considered in the medical decision making process. Lower Extremity Course/Dx - Course Course Of Treatment: Patient is evaluated for left posterior knee pain which is radiating to the left medial side of the leg. Patient states he has had 2 DVTs in the past and was concerned for another DVT. He was on eliquis in the past, however has not been on this recently. Symptoms have been present 2 days. He feels like an ache. Worse with flexion and extension of the foot, better with rest. Denies any shortness of breath. DVT ultrasound obtained which is negative. Patient is encouraged moist heat and follow-up to his PCP. - Diagnoses Differential Diagnosis/HQI/PQRI: Positive: DVT, Sprain, Strain Provider Diagnoses: Pain of left calf Discharge - Sign-Out/Discharge Documenting (check all that apply): Patient Departure Patient Received Moderate/Deep Sedation with Procedure: No - Discharge Plan Condition: Stable Disposition: HOME Referrals: Tati Das MD [Primary Care Provider] - Additional Instructions: NO EVIDENCE OF A DVT FOLLOW UP WITH YOUR PCP FOR ANY PERSISTENT PAIN - Billing Disposition and Condition Condition: STABLE Disposition: Home
== END 2018-11-10 12:57 | disposition home or self-care (01) ==
LOC: ED 11:23
DX: M79.662 Pain in left lower leg (principal); I50.9 Heart failure, unspecified; I11.0 Hypertensive heart disease with heart failure; Z79.01 Long term (current) use of anticoagulants; Z79.82 Long term (current) use of aspirin; Z79.899 Other long term (current) drug therapy; Z87.891 Personal history of nicotine dependence
CPT/HCPCS: 99282